=== PATIENT | male | born 1950 | race Caucasian/White ===

== ENCOUNTER 2022-04-02 07:30 | Inpatient (IN) ==
[2022-03-22 12:36] LABS: Basophils # 0.1 10*3/uL (0.0-0.2); Basophils % 0.6 % (0.0-0.8); Eosinophils # 0.4 10*3/uL (0.0-0.87); Hematocrit 44.1 VOL% (42.0-52.0); Hemoglobin 14.9 GM/DL (14.0-18.0); Immature Granulocytes % 0.7 %; Immature Granulocytes Absolute 0.06 #; Lymphocytes # 1.2 10*3/uL (1.4-4.0); Mean Corpuscular HGB Conc 33.8 GM/DL (32-36); Mean Corpuscular Volume 93.6 FL (87-102); Mean Platelet Volume 9.7 FL (9.6-12.0); Monocytes # 0.7 10*3/uL (0.11-0.8); Monocytes % 7.9 % (1.7-12.7); Neutrophils % 72.8 % (38.7-73.9); Platelet Count 265 T/CUMM (130-400); Red Blood Count 4.71 MC/CUMM (3.8-5.5); Red Cell Distribution Width 13.2 % (9.3-17.3); White Blood Count 8.8 T/CUMM (4-12)
[2022-03-22 12:56] LABS: Albumin 4.4 G/DL (3.4-5.0); Bilirubin,Total 0.6 MG/DL (0.20-1.00); Osmolality,Calculated 277.8 MOS/KG (273-304); Potassium 4.1 MMOL/L (3.5-5.1); Total Protein 7.3 G/DL (6.4-8.2)
[~2022-04-02 07:30] MED LIST: ALVIMOPAN 12 MG CAPSULE PO ONE; cefTRIAXone 1,000 MG in SODIUM CHLORIDE 0.9% 100 ML IV ONE
[2022-04-02] MEDS ORDERED: FAMOTIDINE 20 MG TABLET PO ONE (08:25)
[2022-04-02] MEDS ORDERED: LACTATED RINGERS 1,000 ML IV SCH (08:30)
[2022-04-02] MEDS ORDERED: MIDAZOLAM 2 MG/2 ML VIAL ONE (12:11)
[2022-04-02] MEDS ORDERED: buprenorphine HCL 0.3 MG/ML VIAL ONE (12:18)
[2022-04-02] MEDS ORDERED: PHENYLEPHRINE 1 MG/10 ML SYRINGE IV ONE ×2 (12:46→14:30)
[2022-04-02] MEDS ORDERED: ePHEDrine 50 MG/ML VIAL ONE (14:26)
[2022-04-02] MEDS ORDERED: ROCURONIUM 50 MG/5 ML VIAL IV ONE (14:30)
[2022-04-02] MEDS ORDERED: LACTATED RINGERS 1,000 ML IV ONE ×2 (14:30→15:51)
[2022-04-02] MEDS ORDERED: DESFLURANE 1 UNIT/15 MINUTE INH ONE (14:30)
[2022-04-02] MEDS ORDERED: LIDOCAINE 2% 5 ML VIAL ONE (14:30)
[2022-04-02] MEDS ORDERED: propofoL 200 MG/20 ML VIAL IV ONE (14:30)
[2022-04-02 14:31] LABS: Bilirubin,Urine Negative (Negative); Blood, Urine Moderate mg/dL (Negative); Glucose,Urine (UA) Negative (Negative); Ketones,Urine Negative (Negative); Nitrite,Urine Negative (Negative); Protein,Urine Negative (Negative); Urine Appearance Clear (Clear); Urine Color Yellow (Yellow); Urine Specific Gravity 1.015 (1.001-1.035); Urine Urobilinogen 0.2 eU/dL (<2.0)
[2022-04-02 14:34] LABS: RBC,Urine 23 /HPF (0-4)
[2022-04-02] MEDS ORDERED: PROMETHAZINE 25 MG/1 ML VIAL IM PRN (16:34)
[2022-04-02] MEDS ORDERED: MEPERIDINE 25 MG/1 ML VIAL IV PRN (16:34)
[2022-04-02] MEDS ORDERED: SIMETHICONE CHEW 125 MG TABLET PO PRN (16:34)
[2022-04-02] MEDS ORDERED: oxyCODONE/ACETAMINOPHEN 5-325 MG TABLET PO PRN (16:34)
[2022-04-02] MEDS ORDERED: diphenhydrAMINE 50 MG/1 ML VIAL IV PRN (16:34)
[2022-04-02] MEDS ORDERED: HYDROmorphone 1 MG/1 ML SYRINGE IV PRN ×2 (16:34)
[2022-04-02] MEDS ORDERED: ONDANSETRON 4 MG/2 ML VIAL IV PRN ×2 (16:34)
[2022-04-02] MEDS ORDERED: TISSUE ADHESIVE 1 EACH APPLICATOR TOP ONE (16:36)
[2022-04-02] MEDS ORDERED: ROPIVACAINE 0.5% 30 ML VIAL ONE (16:36)
[2022-04-02] MEDS ORDERED: MECLIZINE 25 MG TABLET PO PRN (16:38)
[2022-04-02] MEDS ORDERED: GLUCAGON 1 MG VIAL IM PRN (16:39)
[2022-04-02] MEDS ORDERED: DEXTROSE 10% 250 ML BAG IV PRN (16:44)
[2022-04-02 17:28] LABS: Basophils % 0.3 % (0.0-0.8); Eosinophils % 0.3 % (0.00-10.9); Hematocrit 40.1 VOL% (42.0-52.0); Hemoglobin 13.6 GM/DL (14.0-18.0); Immature Granulocytes % 0.6 %; Lymphocytes # 0.9 10*3/uL (1.4-4.0); Lymphocytes % 5.9 % (21.2-54.2); Mean Corpuscular HGB Conc 33.9 GM/DL (32-36); Mean Corpuscular Volume 92.6 FL (87-102); Mean Platelet Volume 9.1 FL (9.6-12.0); Monocytes # 0.8 10*3/uL (0.11-0.8); Neutrophils % 87.9 % (38.7-73.9); Platelet Count 228 T/CUMM (130-400); Red Blood Count 4.33 MC/CUMM (3.8-5.5); Red Cell Distribution Width 12.9 % (9.3-17.3); White Blood Count 15.7 T/CUMM (4-12)
[2022-04-02 17:50] LABS: Calcium 8.8 MG/DL (8.5-10.1); Osmolality,Calculated 277.8 MOS/KG (273-304); Potassium 3.9 MMOL/L (3.5-5.1)
[2022-04-02] MEDS: ACETAMINOPHEN 325 MG TABLET PO SCH ×2 (18:18→22:49)
[2022-04-02] MEDS: SODIUM CHLORIDE 0.9% 1,000 ML IV SCH (18:20)
[2022-04-02] MEDS: OXYBUTYNIN 5 MG TABLET PO SCH (20:40)
[2022-04-02] MEDS: DOCUSATE SODIUM 100 MG CAPSULE PO SCH (20:40)
[2022-04-02] MEDS: ALVIMOPAN 12 MG CAPSULE PO SCH (20:41)
[2022-04-02] MEDS: OMEPRAZOLE ODT 20 MG TABLET PO SCH (20:41)
[2022-04-02] MEDS: TAMSULOSIN 0.4 MG CAPSULE PO SCH (20:41)
[2022-04-02] MEDS: INSULIN REGULAR 100 UNIT/ML SUBCUT SCH (21:16)
[2022-04-03] MEDS: SODIUM CHLORIDE 0.9% 1,000 ML IV SCH ×2 (01:39→10:51)
[2022-04-03 04:37] LABS: Basophils % 0.3 % (0.0-0.8); Eosinophils # 0.1 10*3/uL (0.0-0.87); Eosinophils % 1.1 % (0.00-10.9); Hematocrit 36.1 VOL% (42.0-52.0); Hemoglobin 12.3 GM/DL (14.0-18.0); Immature Granulocytes % 0.3 %; Immature Granulocytes Absolute 0.03 #; Lymphocytes # 0.8 10*3/uL (1.4-4.0); Lymphocytes % 9.3 % (21.2-54.2); Mean Corpuscular HGB Conc 34.1 GM/DL (32-36); Mean Corpuscular Volume 92.3 FL (87-102); Mean Platelet Volume 9.4 FL (9.6-12.0); Monocytes # 0.8 10*3/uL (0.11-0.8); Monocytes % 9.3 % (1.7-12.7); Neutrophils % 79.7 % (38.7-73.9); Platelet Count 201 T/CUMM (130-400); Red Blood Count 3.91 MC/CUMM (3.8-5.5); Red Cell Distribution Width 13.1 % (9.3-17.3); White Blood Count 8.9 T/CUMM (4-12)
[2022-04-03 04:54] LABS: Calcium 8.3 MG/DL (8.5-10.1); Potassium 3.7 MMOL/L (3.5-5.1)
[2022-04-03] MEDS: ACETAMINOPHEN 325 MG TABLET PO SCH ×4 (05:26→22:34)
[2022-04-03] MEDS: DOCUSATE SODIUM 100 MG CAPSULE PO SCH ×2 (09:12→20:09)
[2022-04-03] MEDS: OXYBUTYNIN 5 MG TABLET PO SCH ×3 (09:12→20:09)
[2022-04-03] MEDS: allopurinoL 100 MG TABLET PO SCH (09:12)
[2022-04-03] MEDS: ALVIMOPAN 12 MG CAPSULE PO SCH ×2 (09:12→20:09)
[2022-04-03] MEDS: cefTRIAXone 1,000 MG in SODIUM CHLORIDE 0.9% 100 ML IV SCH (09:13)
[2022-04-03] MEDS: INSULIN REGULAR 100 UNIT/ML SUBCUT SCH ×4 (10:51→21:27)
[2022-04-03] MEDS: OMEPRAZOLE ODT 20 MG TABLET PO SCH (20:10)
[2022-04-03] MEDS: TAMSULOSIN 0.4 MG CAPSULE PO SCH (20:10)
[2022-04-04] MEDS: ACETAMINOPHEN 325 MG TABLET PO SCH (04:14)
[2022-04-04 05:23] LABS: Basophils # 0.1 10*3/uL (0.0-0.2); Basophils % 0.6 % (0.0-0.8); Eosinophils # 0.2 10*3/uL (0.0-0.87); Eosinophils % 2.5 % (0.00-10.9); Hematocrit 35.8 VOL% (42.0-52.0); Hemoglobin 12.1 GM/DL (14.0-18.0); Immature Granulocytes % 0.5 %; Immature Granulocytes Absolute 0.04 #; Lymphocytes # 0.6 10*3/uL (1.4-4.0); Lymphocytes % 7.4 % (21.2-54.2); Mean Corpuscular HGB Conc 33.8 GM/DL (32-36); Mean Corpuscular Volume 93.7 FL (87-102); Mean Platelet Volume 9.8 FL (9.6-12.0); Monocytes # 0.7 10*3/uL (0.11-0.8); Monocytes % 8.5 % (1.7-12.7); Neutrophils % 80.5 % (38.7-73.9); Platelet Count 204 T/CUMM (130-400); Red Blood Count 3.82 MC/CUMM (3.8-5.5); Red Cell Distribution Width 13.2 % (9.3-17.3); White Blood Count 8.1 T/CUMM (4-12)
[2022-04-04 06:03] LABS: Calcium 8.6 MG/DL (8.5-10.1); Osmolality,Calculated 275.5 MOS/KG (273-304); Potassium 3.8 MMOL/L (3.5-5.1)
[2022-04-04 08:39] VITALS: BP 127/54
[2022-04-04] MEDS: cefTRIAXone 1,000 MG in SODIUM CHLORIDE 0.9% 100 ML IV SCH (08:41)
[2022-04-04] MEDS: OXYBUTYNIN 5 MG TABLET PO SCH (08:42)
[2022-04-04] MEDS: ALVIMOPAN 12 MG CAPSULE PO SCH (08:42)
[2022-04-04] MEDS: DOCUSATE SODIUM 100 MG CAPSULE PO SCH (08:42)
[2022-04-04] MEDS: allopurinoL 100 MG TABLET PO SCH (08:42)
[2022-04-04] MEDS: INSULIN REGULAR 100 UNIT/ML SUBCUT SCH (09:54)
== END 2022-04-04 11:30 | disposition home or self-care (01) | DRG 708 ==
LOC: N.SDSINP 07:39 → N.3E 17:16
PROVIDERS: ADMIT Surgery; ATTEND Surgery